=== PATIENT | male | born 1925 | race Caucasian/White ===

== ENCOUNTER 2016-07-11 13:40 | Inpatient (IN) | payer BC, OTHER ==
[~2016-07-11] VITALS: Ht 165.1 cm; Wt 80.0 kg
[~2016-07-11 13:40] MED LIST: ALL300 PO; ASPCH81X PO; ATEN50TA8 PO; CMD125 PO; FURO-85 PO; LEVO-217 PO; POTA-327 PO; SIMV20TA2 PO; TIMO0.2528 OPB; TRAV0.00 OPB; WARF2.5T8 PO; [UNRECOGNIZED DRUG - CODE] PO
[2016-07-11] MEDS ORDERED: SODIUM CHLORIDE 0.9% 1000ML 1,000 ML IV STA (14:09)
--- NOTE | 2016-07-11 14:19 | EMERGENCY ROOM VISIT NOTE ---
History Report prepared by Tree: Nando Patel Under the Supervision of: Dr. Santo Cuadra D.O. First contact with patient: 13:58 Chief Complaint: FALL Stated Complaint: FALLS/ WEAKNESS History of Present Illness The patient is an 89 year old male who presents to the Emergency Room via EMS with complaints of multiple sudden mechanical falls that occurred earlier today. Per the nursing staff, EMS was called 3 times for 3 falls that the patient had. The patient has lacerations on his right foot from the most recent fall, and he has a skin tear on his left arm from the second fall. The patient had a fever when the ambulance came a third time to pick the patient up. The patient says that he has felt fine over the past few days, with no pain. The patient says he has not been eating or drinking much recently. He denies any headaches, neck pain, abdominal pain, shortness of breath, vomiting, or coughing. The patient has been treated for ulcerations on his left foot for around a year, and he says it is getting better. Per the nursing staff, the patient was taken off Keflex 2 weeks ago. He lives at home and has dementia. , Source of History: patient, nursing staff Onset: Earlier today Position: other (global - mechanical falls) Symptom Intensity: 3 falls Timing: other (sudden) Associated Symptoms: + fevers, No SOB, No abdominal pain, No cough, No headache, No neck pain, No vomiting Note: Associated symptoms: Lacerations on right foot, skin tear on left arm. Has not been eating or drinking much recently. Denies any current pain. Review of Systems See HPI for pertinent positives & negatives. A total of 10 systems reviewed and were otherwise negative. 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 (5) Fall (6) HYPERLIPIDEMIA NEC/NOS (7) HYPERTENSION NOS (8) HYPOTHYROIDISM NOS (9) PERSONAL HX OF TIA,& CEREBRAL INFARCTION W/OUT RES DEFICITS Family History Omitted secondary to age Social History Smoking Status: Never Smoker Alcohol Use: none Drug Use: none Marital Status: Housing Status: lives with family Occupation Status: retired Current/Historical Medications Scheduled Allopurinol (Zyloprim *), 300 MG PO DAILY Aspirin (Aspirin Chewable), 81 MG PO DAILY Atenolol (Tenormin), 50 MG PO DAILY Colestipol Hcl (Colestid), 1 GM PO TID Furosemide (Lasix), 20 MG PO DAILY Latanoprost (Xalatan 0.005% Oph Andra), 1 DROPS OPB HS Levothyroxine Sodium (Synthroid), 1 TAB PO DAILY Omeprazole (Prilosec), 20 MG PO DAILY Potassium Ext Rel (Klor-Con), 10 MEQ PO BID Simvastatin (Zocor), 20 MG PO QPM Timolol Maleate 0.25% Oph (Timoptic 0.25% Oph), 1 DROP OPB HS Warfarin Sod (Jantoven), 2.5 MG PO 4XWK Warfarin Sod (Coumadin), 1.25 MG PO 3XWK Allergies Coded Allergies: Sulfa Drugs (Unverified Allergy, Mild, 07/11/16) Physical Exam Vital Signs Date Time Temp Pulse Resp B/P Pulse Ox O2 Delivery O2 Flow Rate FiO2 07/11/16 18:55 38.6 83 22 110/66 07/11/16 18:43 83 22 110/66 94 Room Air 07/11/16 18:17 77 07/11/16 17:25 85 25 115/65 98 Room Air 07/11/16 15:54 88 13 129/62 100 Room Air 07/11/16 14:15 95 07/11/16 14:13 38.6 94 25 121/69 94 Room Air 07/11/16 14:13 97 Room Air Physical Exam GENERAL: Patient is listless, does not appear to be in pain or uncomfortable. EYES: The conjunctivae are clear. The pupils are round and reactive. EARS, NOSE, MOUTH AND THROAT: The nose is without any evidence of any deformity. Mucous membranes are dry tongue is midline NECK: The neck is nontender and supple. RESPIRATORY: Lung sounds were diminished throughout. No tachypnea or conversational dyspnea noted. CARDIOVASCULAR: Heart sounds were tachycardic and regular, loud systolic murmur noted to auscultation. GASTROINTESTINAL: The abdomen is soft. Bowel sounds are present in all quadrants. Abdomen is nontender MUSCULOSKELETAL/EXTREMITIES: There is no evidence of gross deformity full range of motion is noted in the hips and shoulders SKIN: Pedal edema bilaterally. Multiple skin tears in upper extremities as well as bruising across chest. Ulcerations noted over left toes. NEUROLOGIC: Patient is oriented to person and place but not time or situation. Medical Decision & Procedures ER Provider Diagnostic Interpretation: Radiology results as stated below per my review and radiologist interpretation: CHEST ONE VIEW PORTABLE CLINICAL HISTORY: Sepsis COMPARISON STUDY: January 2010 FINDINGS: The heart is borderline enlarged. There is aortic tortuosity. There is no focal pulmonary consolidation. There are scattered calcified granulomas present. Current study is rotated.[ No pleural effusions are visualized. IMPRESSION: No active disease in the chest. Electronically signed by: Tanner Guzman M.D. 07/11/2016 2:36 PM Dictated Date/Time: 07/11/2016 2:[address] CT DOSE: 1071.16 mGy.cm HISTORY: Trauma. Mental status change. fall TECHNIQUE: Multiaxial CT images of the head were performed without the use of intravenous contrast. Comparison: 02/01/2010 Findings: The paranasal sinuses and mastoid air cells are clear. The calvarium and skull base are intact. The ventricles and sulci are within normal limits. There is no mass, hematoma, midline shift, or acute infarct. 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 Mild chronic small vessel change of aging. Mild age-related atrophy. Impression: Chronic change. No acute process. Electronically signed by: Luis Angel Rivas M.D. 07/11/2016 3:46 PM Dictated Date/Time: 07/11/2016 3:[address] OF THE CERVICAL SPINE WITHOUT CONTRAST CLINICAL HISTORY: Fall. COMPARISON STUDY: No previous studies for comparison. TECHNIQUE: Helical axial images of the cervical spine were obtained without IV contrast. Sagittal and coronal reconstructions were viewed. FINDINGS: Positioning on this exam is suboptimal. Left curvature of the cervical spine is likely positional. No acute fracture is identified within the cervical spine. Craniocervical junction is intact. Mild anterolisthesis of C7 on T1 is likely due to facet arthrosis. There is no prevertebral edema. There is no pneumothorax within visual portions the lung apices. There is a calcified right upper lobe granuloma. Moderate multilevel degenerative disc disease and facet arthrosis is present. IMPRESSION: No acute cervical spine fracture or subluxation. Electronically signed by: Ajit Harper M.D. 07/11/2016 3:48 PM Dictated Date/Time: 07/11/2016 3:43 PM Laboratory Results 07/11/16 15:00 Red Blood Count 4.48, Mean Corpuscular Volume 95.1, Mean Corpuscular Hemoglobin 32.1, Mean Corpuscular Hemoglobin Concent 33.8, Mean Platelet Volume 13.6, Neutrophils (%) (Auto) 81.3, Lymphocytes (%) (Auto) 10.1, Monocytes (%) (Auto) 7.5, Eosinophils (%) (Auto) 0.0, Basophils (%) (Auto) 0.3, Neutrophils # (Auto) 5.29, Lymphocytes # (Auto) 0.66, Monocytes # (Auto) 0.49, Eosinophils # (Auto) 0.00, Basophils # (Auto) 0.02 07/11/16 15:00 Test 07/11/16 14:00 07/11/16 15:00 07/11/16 15:11 07/11/16 19:00 Urine Color YELLOW Urine Appearance CLEAR (CLEAR) Urine pH 6.5 (4.5-7.5) Urine Specific [place] 1.009 (1.000-1.030) Urine Protein NEG (NEG) Urine Glucose (UA) NEG (NEG) Urine Ketones NEG (NEG) Urine Occult Blood TRACE (NEG) Urine Nitrite NEG (NEG) Urine Bilirubin NEG (NEG) Urine Urobilinogen NEG (NEG) Urine Leukocyte Esterase NEG (NEG) Urine WBC (Auto) 0 /hpf (0-5) Urine RBC (Auto) 0-4 /hpf (0-4) Urine Hyaline Casts (Auto) 1-5 /lpf (0-5) Urine Epithelial Cells (Auto) 0-5 /lpf (0-5) Urine Bacteria (Auto) NEG (NEG) White Blood Count 6.51 K/uL (4.8-10.8) Red Blood Count 4.48 M/uL (4.7-6.1) Hemoglobin 14.4 g/dL (14.0-18.0) Hematocrit 42.6 % (42-52) Mean Corpuscular Volume 95.1 fL (80-100) Mean Corpuscular Hemoglobin 32.1 pg (25-34) Mean Corpuscular Hemoglobin Concent 33.8 g/dl (32-36) Platelet Count 122 K/uL (130-400) Mean Platelet Volume 13.6 fL (7.4-10.4) Neutrophils (%) (Auto) 81.3 % Lymphocytes (%) (Auto) 10.1 % Monocytes (%) (Auto) 7.5 % Eosinophils (%) (Auto) 0.0 % Basophils (%) (Auto) 0.3 % Neutrophils # (Auto) 5.29 K/uL (1.4-6.5) Lymphocytes # (Auto) 0.66 K/uL (1.2-3.4) Monocytes # (Auto) 0.49 K/uL (0.11-0.59) Eosinophils # (Auto) 0.00 K/uL (0-0.5) Basophils # (Auto) 0.02 K/uL (0-0.2) RDW Standard Deviation 54.8 fL (36.4-46.3) RDW Coefficient of Variation 15.7 % (11.5-14.5) Immature Granulocyte % (Auto) 0.8 % Immature Granulocyte # (Auto) 0.05 K/uL (0.00-0.02) Red Blood Cell Morphology Unremarkable Erythrocyte Sedimentation Rate 36 mm/hr (0-14) Prothrombin Time 16.7 SECONDS (9.0-12.0) Prothromb Time International Ratio 1.5 (0.9-1.1) Activated Partial Thromboplast Time 40.0 SECONDS (21.0-31.0) Partial Thromboplastin Ratio 1.5 Venous Blood pH 7.43 (7.36-7.41) Venous Blood Partial Pressure CO2 46 mmHg (38.0-50.0) Venous Blood Partial Pressure O2 22 mmHg Venous Blood HCO3 30 mmol/L Venous Blood Oxygen Saturation < 60.0 % Venous Blood Base Excess 4.6 mmol/L Anion Gap 7.0 mmol/L (3-11) Est Creatinine Clear Calc Drug Dose 40.7 ml/min Estimated GFR () 61.8 Estimated GFR (Non- 53.3 BUN/Creatinine Ratio 16.1 (10-20) Calcium Level 9.1 mg/dl (8.5-10.1) Phosphorus Level 2.6 mg/dl (2.5-4.9) Magnesium Level 2.0 mg/dl (1.8-2.4) Total Bilirubin 1.3 mg/dl (0.2-1) Aspartate Amino Transf (AST/SGOT) 39 U/L (15-37) Alanine Aminotransferase (ALT/SGPT) 23 U/L (12-78) Alkaline Phosphatase 82 U/L (45-117) Total Creatine Kinase 198 U/L (39-308) Creatine Kinase MB 0.7 ng/ml (0.5-3.6) Creatine Kinase MB Ratio 0.4 (0-3.0) Troponin I 0.040 ng/ml (0-0.045) C-Reactive Protein 9.31 mg/dl (0-0.29) Pro-B-Type Natriuretic Peptide 9403 pg/ml (0-1800) Total Protein 7.2 gm/dl (6.4-8.2) Albumin 3.5 gm/dl (3.4-5.0) Globulin 3.7 gm/dl (2.5-4.0) Albumin/Globulin Ratio 0.9 (0.9-2) Lipase 79 U/L (73-393) Chemistry Specimen Hemolysis Bedside Lactic Acid Venous 2.36 mmol/L (0.90-1.70) Laboratory results per my review. Medications Administered Medications (Trade) Dose Ordered Sig/Ismael Route Start Time Stop Time Status Last Admin Dose Admin Sodium Chloride (Nss 1000ml) 1,000 ml @ 999 mls/hr Q1H1M STAT IV 07/11/16 14:09 07/11/16 15:09 DC 07/11/16 15:10 999 MLS/HR Ceftriaxone Sodium (Rocephin Inj) 1 gm NOW STAT IV 07/11/16 16:51 07/11/16 16:52 DC 07/11/16 16:51 1 GM ECG Indication: weakness Rate (beats per minute): 90 Rhythm: atrial fibrillation Findings: other (no PVC's, no acute ST segment abnormalities) Change: no significant change (from Feb 01 2010) ED Course 1404: The patient was evaluated in room A2. A complete history and physical examination were performed. 1409: Ordered NSS 1000 ml @ 999 mls/hr IV. 165: Ordered Rocephin Inj 1 gm IV. 165: I reevaluated the patient and he is resting comfortably. The patient verbally expressed understanding and agreement with the treatment plan. The patient will be evaluated for further treatment. 1659: I discussed the patient with Cristal Murillo. She will evaluate the patient for further treatment. Medical Decision Prior records/ancillary studies reviewed and summarized above. Nursing notes reviewed. Additional history obtained from nursing staff. Differential diagnosis: Etiologies such as metabolic, infection, hypo/hyperglycemia, electrolyte abnormalities, cardiac sources, intracerebral event, toxicologic, neurologic, as well as others were entertained. The patient is an 89-year-old male who presented to the emergency department by ambulance. The ambulance was called to the patient's house 3 times today. Each time it was for a fall. On the third call even though the patient did not wish to come to the hospital he was brought to the hospital because prehospital personnel felt he was unsafe. The patient was found have a fever. I do feel the patient's overall condition is likely consistent with early septic picture. He appears to have no signs of infection in his lungs on chest x-ray or on urinalysis but I do feel the patient has lower extremity findings which could be consistent with cellulitis. He was started on IV antibiotics IV fluids in the emergency department. He was reevaluated multiple times. I discussed the patient's laboratory and radiographic studies with him and his family member. I also discussed his case with the on-call [facility] hospitalist group. They have agreed to evaluate the patient in the emergency department for further management and disposition. Consults Time Called: 1654 Consulting Physician: Cristal Murillo Returned Call: [phone] I discussed the patient with Cristal Murillo. She will evaluate the patient for further treatment. Impression Primary Impression: Sepsis Additional Impressions: Cellulitis Weakness Scribe Attestation The scribe's documentation has been prepared under my direction and personally reviewed by me in its entirety. I confirm that the note above accurately reflects all work, treatment, procedures, and medical decision making performed by me. Departure Information Dispostion Being Evaluated By Hospitalist Referrals Terry Gambino M.D. (PCP) Patient Instructions [facility] Problem Qualifiers Primary Impression: Sepsis Sepsis type: sepsis due to unspecified organism Qualified Codes: A41.9 - Sepsis, unspecified organism Additional Impressions: Cellulitis Site of cellulitis: extremity Site of cellulitis of extremity: lower extremity Laterality: unspecified laterality Qualified Codes: L03.119 - Cellulitis of unspecified part of limb
--- NOTE | 2016-07-11 14:37 | DIAGNOSTIC IMAGING REPORT ---
CHEST ONE VIEW PORTABLE CLINICAL HISTORY: Sepsis COMPARISON STUDY: January 2010 FINDINGS: The heart is borderline enlarged. There is aortic tortuosity. There is no focal pulmonary consolidation. There are scattered calcified granulomas present. Current study is rotated.[ No pleural effusions are visualized. IMPRESSION: No active disease in the chest. Electronically signed by: Tanner Guzman M.D. 07/11/2016 2:36 PM Dictated Date/Time: 07/11/2016 2:35 PM
[2016-07-11 15:03] LABS: URINE APPEARANCE CLEAR (CLEAR); URINE BILIRUBIN NEG (NEG); URINE COLOR YELLOW; URINE EPITHELIAL CELL AUTO 0-5 /lpf (0-5); URINE NITRITE NEG (NEG); URINE PH 6.5 (4.5-7.5); URINE SPECIFIC GRAVITY 1.009 (1.000-1.030); UROBILINOGEN NEG (NEG); ZZURINE CULT IF INDIC CATH NO
[2016-07-11 15:09] LABS: MANUAL MICROSCOPIC REQUIRED? NO; REVIEW REQ? NO
[2016-07-11 15:18] LABS: VEN BLOOD GAS BASE EXCESS 4.6 mmol/L; VENOUS BLOOD GAS PCO2 46 mmHg (38.0-50.0); VENOUS BLOOD GAS PO2 22 mmHg
[2016-07-11 15:19] LABS: VEN BLD GAS O2 SATURATION < 60.0 %
[2016-07-11 15:35] LABS: INR 1.5 (0.9-1.1); PARTIAL THROMBOPLASTIN RATIO 1.5; PROTHROMBIN TIME (PATIENT) 16.7 SECONDS (9.0-12.0)
--- NOTE | 2016-07-11 15:47 | DIAGNOSTIC IMAGING REPORT ---
HEAD CT NONCONTRAST CT DOSE: 1071.16 mGy.cm HISTORY: Trauma. Mental status change. fall TECHNIQUE: Multiaxial CT images of the head were performed without the use of intravenous contrast. Comparison: 02/01/2010 Findings: The paranasal sinuses and mastoid air cells are clear. The calvarium and skull base are intact. The ventricles and sulci are within normal limits. There is no mass, hematoma, midline shift, or acute infarct. 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 Mild chronic small vessel change of aging. Mild age-related atrophy. Impression: Chronic change. No acute process. Electronically signed by: Luis Angel Rivas M.D. 07/11/2016 3:46 PM Dictated Date/Time: 07/11/2016 3:43 PM
--- NOTE | 2016-07-11 15:48 | DIAGNOSTIC IMAGING REPORT ---
CT OF THE CERVICAL SPINE WITHOUT CONTRAST CLINICAL HISTORY: Fall. COMPARISON STUDY: No previous studies for comparison. TECHNIQUE: Helical axial images of the cervical spine were obtained without IV contrast. Sagittal and coronal reconstructions were viewed. FINDINGS: Positioning on this exam is suboptimal. Left curvature of the cervical spine is likely positional. No acute fracture is identified within the cervical spine. Craniocervical junction is intact. Mild anterolisthesis of C7 on T1 is likely due to facet arthrosis. There is no prevertebral edema. There is no pneumothorax within visual portions the lung apices. There is a calcified right upper lobe granuloma. Moderate multilevel degenerative disc disease and facet arthrosis is present. IMPRESSION: No acute cervical spine fracture or subluxation. Electronically signed by: Ajit Harper M.D. 07/11/2016 3:48 PM Dictated Date/Time: 07/11/2016 3:43 PM
[2016-07-11 15:51] LABS: ALB/GLOB RATIO 0.9 (0.9-2); BUN/CREATININE RATIO 16.1 (10-20); C-REACTIVE PROTEIN 9.31 mg/dl (0-0.29); CALCIUM 9.1 mg/dl (8.5-10.1); CKMB/CK RATIO 0.4 (0-3.0); CREATININE 1.2 mg/dl (0.60-1.40); PHOSPHORUS 2.6 mg/dl (2.5-4.9); POTASSIUM 3.6 mmol/L (3.5-5.1)
[2016-07-11 16:23] LABS: MEAN CORPUSCULAR HGB CONC 33.8 g/dl (32-36); MEAN PLATELET VOLUME 13.6 fL (7.4-10.4); PLATELET COUNT 122 K/uL (130-400)
[2016-07-11 16:27] LABS: BASO % 0.3 %; BASO ABS # 0.02 K/uL (0-0.2); COMPLETE YES; HEMATOCRIT 42.6 % (42-52); IG% 0.8 %; LYMPH % 10.1 %; LYMPH ABS # 0.66 K/uL (1.2-3.4); MEAN CELL VOLUME 95.1 fL (80-100); MEAN CORPUSCULAR HEMOGLOBIN 32.1 pg (25-34); MONO % 7.5 %; NEUT % 81.3 %; RED BLOOD COUNT 4.48 M/uL (4.7-6.1); WHITE BLOOD COUNT 6.51 K/uL (4.8-10.8)
[2016-07-11] MEDS ORDERED: CEFTRIAXONE SOD INJ 1 GM ADDVIAL IV STA (16:51)
[2016-07-11] MEDS ORDERED: ONDANSETRON INJ 2 MG/ML 2 ML VIAL IV PRN (18:00)
[2016-07-11] MEDS ORDERED: ACETAMINOPHEN 325 MG TAB PO PRN (18:00)
[2016-07-11] MEDS ORDERED: POTA20TA16 PO (18:02)
[2016-07-11] MEDS ORDERED: OMEP20CA9 PO (18:02)
[2016-07-11] MEDS ORDERED: COLE1TAB PO (18:02)
[2016-07-11] MEDS ORDERED: LEVO88TA PO (18:02)
[2016-07-11] MEDS ORDERED: LATA0.5S OPB (18:02)
[2016-07-11] MEDS ORDERED: VANCOMYCIN INJ 1,700 MG in SODIUM CHLORIDE 0.9% 500ML 500 ML IV ONE (18:15)
--- NOTE | 2016-07-11 18:28 | Progress Note ---
Progress Note Date of Service July 11, 2016. Progress Note Please see admit h&p by Cristal Gonzalez for full details. Patient presented after 3 falls today. Two of the falls sounded mechanical in nature: patient slipped off bed and off toilet. Patient denies any proceeding symptoms. Vitals notable for fever. PE: General- awake; alert; NAD Eyes- EOMI; no scleral icterus ENT- +dentures Neck- no stridor; trachea midline Lungs- CTA bilaterally; no wheezes/crackles Heart- irregularly irregular; +loud systolic murmur Abdomen- soft; NTND; nBS Back- no gross abnormalities Extremities- chronic deformity of medial aspect of left foot with superficial ulcer; edematous appearing left foot which is chronic and unchanged per patient Neuro- no focal deficits Skin- warmth of LLE; erythema of left foot which is chronic and unchanged per patient Labs, imaging and EKG reviewed. Mechanical falls: CT head and CT c-spine negative. PT/OT evaluations. No prodromal symptoms or loss of consciousness per patient (he does have a h/o aortic stenosis). Left foot ulcer: Fever. Normal WBC count. Elevated ESR and CRP. Wound culture pending. Blood cultures pending. Vancomycin for now. Wound care consult. Of note , patient did have an abnormal MRI about a month ago that is not addressed in any of the wound care notes; this will need to be addressed with wound care. Agree with remainder of plan as outlined by Cristal Gonzalez.
[2016-07-11] MEDS ORDERED: VANCOMYCIN CONSULT ACTIVE PRN (18:35)
[2016-07-11 18:55] VITALS: BP_SYST 109; BP_SYST 110; BP_DIAS 64; BP_DIAS 66; PULSE 83; PULSE 93; TEMP 36.8; TEMP 38.6; O2SAT 94; Ht 165.1 cm; Wt 80.0 kg
--- NOTE | 2016-07-11 19:00 | History and Physical ---
History & Physical Date & Time of Service: July 11, 2016 at 18:24 Chief Complaint: Falls/ Weakness Primary Care Physician: Twin Stevens D.OLoreto History of Present Illness Source: patient, family, clinic records, hospital records Patient seen and examined. 89 year old male with PMHx of Afib on coumadin, HTN, HLD severe and other problems listed below presents to the ED following multiple falls prior to arrival. Patient reports that he fell 3 times today. At the time of my examination he states he did not remember what the situation surrounding the falls were. When Dr. Munoz spoke with the patient he stated that he slipped off his bed once and the toilet once. He is unsure what happened for the third fall. He was unable to get up from any of the falls and EMS was called. He refused to come to the ED until after the third fall at which time he was febrile. He denies any lightheadedness, or dizziness prior to the falls and denies head trauma and LOC. He reports he felt "weak and wobbly" today otherwise he feels at baseline. He denies chills, URI symptoms, chest pain , SOB, nausea, vomiting, diarrhea, dysuria, calf pain and edema. He is being seen at wound care for a left foot pressure ulcer. In the ED patient is febrile. there is no leukocytosis, POC lactate is 2.3, ESR and CRP are elevated. CXR and UA are without signs of infection. There appears to be cellulitis surrounding patient's left foot. He received IVFs and rocephin. He will be admitted for further workup and treatment. 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 Family History Omitted secondary to age Social History Smoking Status: Never Smoker Alcohol Use: vodka daily Drug Use: none Marital Status: Housing status: lives with family Occupational Status: retired Immunizations History of Influenza Vaccine: Unknown History of Tetanus Vaccine?: Unknown History of Pneumococcal: Unknown History of Hepatitis B Vaccine: No Multi-Drug Resistant Organisms History of MDRO: Yes Type of MDRO: VRE Allergies Coded Allergies: Sulfa Drugs (Unverified Allergy, Mild, 07/11/16) Home Medications Scheduled Allopurinol (Zyloprim *), 300 MG PO DAILY Aspirin (Aspirin Chewable), 81 MG PO DAILY Atenolol (Tenormin), 50 MG PO DAILY Colestipol Hcl (Colestid), 1 GM PO TID Furosemide (Lasix), 20 MG PO DAILY Latanoprost (Xalatan 0.005% Oph Andra), 1 DROPS OPB HS Levothyroxine Sodium (Synthroid), 1 TAB PO DAILY Omeprazole (Prilosec), 20 MG PO DAILY Potassium Ext Rel (Klor-Con), 10 MEQ PO BID Simvastatin (Zocor), 20 MG PO QPM Timolol Maleate 0.25% Oph (Timoptic 0.25% Oph), 1 DROP OPB HS Warfarin Sod (Jantoven), 2.5 MG PO 4XWK Warfarin Sod (Coumadin), 1.25 MG PO 3XWK Review of Systems Constitutional: + fever, No chills Eyes: No worsening of vision ENT: No nasal symptoms Respiratory: No cough, No shortness of breath Cardiovascular: No chest pain, No edema, No palpitations Abdomen: No constipation, No diarrhea, No nausea, No pain, No vomiting Musculoskeletal: No calf pain, No swelling Genitourinary - Male: No dysuria Neurologic: No numbness/tingling, No vertigo Psychiatric: No depression symptoms Endocrine: No fatigue Hematologic / Lymphatic: No abnormal bleeding/bruising, No clotting problems Integumentary: No itch, No rash Allergic / Immunologic: No environmental allergies Physical Exam Vital Signs Date Time Temp Pulse Resp B/P Pulse Ox O2 Delivery O2 Flow Rate FiO2 07/11/16 18:17 77 07/11/16 17:25 85 25 115/65 98 Room Air 07/11/16 15:54 88 13 129/62 100 Room Air 07/11/16 14:15 95 07/11/16 14:13 38.6 94 25 121/69 94 Room Air 07/11/16 14:13 97 Room Air General Appearance: + pertinent finding (WD/WN 89 year old male lying in bed in NAD with family at bedside ) Head: normocephalic, atraumatic Eyes: PERRL, EOMI, sclerae normal ENT: hearing grossly normal, pharynx normal Neck: supple, no JVD Respiratory/Chest: chest non-tender, lungs clear, normal breath sounds, no respiratory distress, no accessory muscle use, + pertinent finding (large ecchymosis to cental chest ) Cardiovascular: no edema, no gallop, no JVD, normal peripheral pulses, + systolic murmur, + irregularly irregular (rate 90s) Abdomen/GI: normal bowel sounds, non tender, soft Back: normal inspection, no muscle spasm Extremities/Musculoskelatal: no calf tenderness, normal capillary refill, + pertinent finding (left foot with pressure ulcer to medial plantar aspect about nayana sized. surrounding erythema, mild edema, extremity hot. ) Neurologic/Psych: alert, oriented x 3, + pertinent finding (occasionally forgetful, otherwise no motor or sensory deficits ) Skin: + pertinent finding (scattered ecchymosis ) Lymphatic: no adenopathy Diagnostics Laboratory Results Results Past 24 Hours Test 07/11/16 14:00 07/11/16 15:00 07/11/16 15:11 Range/Units Urine Color YELLOW Urine Appearance CLEAR CLEAR Urine pH 6.5 4.5-7.5 Urine Specific [place] 1.009 1.000-1.030 Urine Protein NEG NEG Urine Glucose (UA) NEG NEG Urine Ketones NEG NEG Urine Occult Blood TRACE NEG Urine Nitrite NEG NEG Urine Bilirubin NEG NEG Urine Urobilinogen NEG NEG Urine Leukocyte Esterase NEG NEG Urine WBC (Auto) 0 0-5 /hpf Urine RBC (Auto) 0-4 0-4 /hpf Urine Hyaline Casts (Auto) 1-5 0-5 /lpf Urine Epithelial Cells (Auto) 0-5 0-5 /lpf Urine Bacteria (Auto) NEG NEG White Blood Count 6.51 4.8-10.8 K/uL Red Blood Count 4.48 4.7-6.1 M/uL Hemoglobin 14.4 14.0-18.0 g/dL Hematocrit 42.6 42-52 % Mean Corpuscular Volume 95.1 80-100 fL Mean Corpuscular Hemoglobin 32.1 25-34 pg Mean Corpuscular Hemoglobin Concent 33.8 32-36 g/dl Platelet Count 122 130-400 K/uL Mean Platelet Volume 13.6 7.4-10.4 fL Neutrophils (%) (Auto) 81.3 % Lymphocytes (%) (Auto) 10.1 % Monocytes (%) (Auto) 7.5 % Eosinophils (%) (Auto) 0.0 % Basophils (%) (Auto) 0.3 % Neutrophils # (Auto) 5.29 1.4-6.5 K/uL Lymphocytes # (Auto) 0.66 1.2-3.4 K/uL Monocytes # (Auto) 0.49 0.11-0.59 K/uL Eosinophils # (Auto) 0.00 0-0.5 K/uL Basophils # (Auto) 0.02 0-0.2 K/uL RDW Standard Deviation 54.8 36.4-46.3 fL RDW Coefficient of Variation 15.7 11.5-14.5 % Immature Granulocyte % (Auto) 0.8 % Immature Granulocyte # (Auto) 0.05 0.00-0.02 K/uL Red Blood Cell Morphology Unremarkable Erythrocyte Sedimentation Rate 36 0-14 mm/hr Prothrombin Time 16.7 9.0-12.0 SECONDS Prothromb Time International Ratio 1.5 0.9-1.1 Activated Partial Thromboplast Time 40.0 21.0-31.0 SECONDS Partial Thromboplastin Ratio 1.5 Venous Blood pH 7.43 7.36-7.41 Venous Blood Partial Pressure CO2 46 38.0-50.0 mmHg Venous Blood Partial Pressure O2 22 mmHg Venous Blood HCO3 30 mmol/L Venous Blood Oxygen Saturation < 60.0 % Venous Blood Base Excess 4.6 mmol/L Sodium Level 135 136-145 mmol/L Potassium Level 3.6 3.5-5.1 mmol/L Chloride Level 98 98-107 mmol/L Carbon Dioxide Level 30 21-32 mmol/L Anion Gap 7.0 3-11 mmol/L Blood Urea Nitrogen 19 7-18 mg/dl Creatinine 1.20 0.60-1.40 mg/dl Est Creatinine Clear Calc Drug Dose 40.7 ml/min Estimated GFR () 61.8 Estimated GFR (Non- 53.3 BUN/Creatinine Ratio 16.1 10-20 Random Glucose 119 70-99 mg/dl Calcium Level 9.1 8.5-10.1 mg/dl Phosphorus Level 2.6 2.5-4.9 mg/dl Magnesium Level 2.0 1.8-2.4 mg/dl Total Bilirubin 1.3 0.2-1 mg/dl Aspartate Amino Transf (AST/SGOT) 39 15-37 U/L Alanine Aminotransferase (ALT/SGPT) 23 12-78 U/L Alkaline Phosphatase 82 45-117 U/L Total Creatine Kinase 198 39-308 U/L Creatine Kinase MB 0.7 0.5-3.6 ng/ml Creatine Kinase MB Ratio 0.4 0-3.0 Troponin I 0.040 0-0.045 ng/ml C-Reactive Protein 9.31 0-0.29 mg/dl Pro-B-Type Natriuretic Peptide 9403 0-1800 pg/ml Total Protein 7.2 6.4-8.2 gm/dl Albumin 3.5 3.4-5.0 gm/dl Globulin 3.7 2.5-4.0 gm/dl Albumin/Globulin Ratio 0.9 0.9-2 Lipase 79 73-393 U/L Chemistry Specimen Hemolysis Bedside Lactic Acid Venous 2.36 0.90-1.70 mmol/L Microbiology Results 07/11/16 Blood Culture, Received Pending 07/11/16 Blood Culture, Received Pending Diagnostic Radiology C-SPINE CT Per radiologist read: IMPRESSION: No acute cervical spine fracture or subluxation. CT HEAD Per radiologist read: Impression: Chronic change. No acute process. CXR Per radiologist read: IMPRESSION: No active disease in the chest. EKG Afib 90 BPM, QTc 442 Impression Assessment and Plan 89 year old male presents to the ED following multiple mechanical falls prior to arrival. Was found to be febrile. Likely source of infection is cellulitis LEFT FOOT CELLULITIS WITH PRESSURE ULCER -Admit to med/surg -febrile, no leukocytosis, mild elevated of POC lactate -Wound cultures, blood culture pending -Empirically treat with vancomycin -Wound care physician and nurse consult - follows with Dr. Daniels -repeat formal lactate -CBC, PRP in AM MECHANICAL FALLS -CT head negative -PT/OT eval -high school social studies teacher consult for discharge planning -Will need to discuss risk versus benefits of Coumadin continuation with PCP and cardiology AFIB -rate controlled with BB -INR 1.5 -continue Coumadin -follow INR -follows with Dr. Genao HTN -stable -continue BB, Lasix H/O SEVERE AORTIC STENOSIS -received IVFs in ED -monitor volume status closely -continue Lasix HYPOTHYROIDISM -continue Synthroid H/O CVA -continue statin, aspirin DVT PROPHYLAXIS: SQ heparin until INR is therapeutic DISPO:In my clinical judgment this beneficiary meets acute admission criteria, established by [facility], that includes being hospitalized through two midnights. Patient seen in collaboration with Dr. Munoz VTE Prophylaxis VTE Risk Assessment Done? Y/N: Yes Risk Level: Moderate
[2016-07-11 19:45] VITALS: BP 109/64; PULSE 93; TEMP 36.8; O2SAT 95
[2016-07-11] MEDS ORDERED: WARFARIN SOD 5 MG TAB PO ONE (20:15)
[2016-07-11] MEDS: POTASSIUM CHLORIDE 10 MEQ TABCR PO SCH (20:38)
[2016-07-11] MEDS: SIMVASTATIN 20 MG TAB PO SCH (20:39)
[2016-07-11] MEDS ORDERED: SODIUM CHLORIDE 0.9% 500ML 500 ML IV ONE (21:00)
[2016-07-11] MEDS: COLESTIPOL HCL 1 GM TAB PO SCH (21:52)
[2016-07-11] MEDS: TIMOLOL MALEATE 0.25% OP SOLN 5 ML BTL OPB SCH (21:54)
[2016-07-11] MEDS: LATANOPROST 0.005% OP SOLN 2.5 ML BTL OPB SCH (21:54)
[2016-07-11] MEDS: HEPARIN SOD 5000 UNIT/0.5 ML CARP SQ SCH (21:54)
--- NOTE | 2016-07-11 22:34 | Pharmacy Progress Note ---
Pharmacy Antibiotic Consult Date of Service: July 11, 2016. Pharmacy Dosing Scope Pharmacy is consulted to initiate vancomycin IV dosing therapy, order appropriate labs and adjust drug dose/frequency. Subjective The patient is a 89 year old male admitted on July 11, 2016 for L foot cellulitis. Objective Height (Feet): 5 Height (Inches): 5.00 Weight (Kilograms): 80.000 Lab Results (24hrs): Laboratory Tests Test 07/11/16 15:00 BUN/Creatinine Ratio 16.1 Blood Urea Nitrogen 19 mg/dl Creatinine 1.20 mg/dl White Blood Count 6.51 K/uL Red Blood Count 4.48 M/uL Hemoglobin 14.4 g/dL Hematocrit 42.6 % Mean Corpuscular Volume 95.1 fL Mean Corpuscular Hemoglobin 32.1 pg Mean Corpuscular Hemoglobin Concent 33.8 g/dl Platelet Count 122 K/uL Mean Platelet Volume 13.6 fL Neutrophils (%) (Auto) 81.3 % Lymphocytes (%) (Auto) 10.1 % Monocytes (%) (Auto) 7.5 % Eosinophils (%) (Auto) 0.0 % Basophils (%) (Auto) 0.3 % Neutrophils # (Auto) 5.29 K/uL Lymphocytes # (Auto) 0.66 K/uL Monocytes # (Auto) 0.49 K/uL Eosinophils # (Auto) 0.00 K/uL Basophils # (Auto) 0.02 K/uL Assessment & Plan ASSESSMENT: * Est PK parameters: Vd 0.7 L/kg, Rinku 0.038 hr-1, t1/2 18.2 hrs PLAN: Loading dose: Vancomycin 1700 mg (21 mg/kg) IV X 1 dose has already been given , then: Vancomycin 1500 mg (18.8 mg/kg) IV every 24 hours. Goal trough level estimate: ~15 Trough level has been ordered for: prior to the 3rd dose (please note that this is NOT a steady state) Pharmacy will continue to follow and will adjust dose/frequency as necessary. Thank you
[2016-07-11 23:59] VITALS: BP 112/68; PULSE 84; TEMP 37.4; O2SAT 96
[2016-07-12] MEDS: LEVOTHYROXINE 88 MCG TAB PO SCH (06:22)
[2016-07-12] MEDS: HEPARIN SOD 5000 UNIT/0.5 ML CARP SQ SCH (06:26)
[2016-07-12 07:07] LABS: MEAN CORPUSCULAR HGB CONC 33.1 g/dl (32-36)
[2016-07-12 07:11] LABS: INR 1.6 (0.9-1.1)
[2016-07-12 07:26] VITALS: BP 104/65; PULSE 95; TEMP 37.1; O2SAT 94
[2016-07-12 07:27] LABS: HEMATOCRIT 35.6 % (42-52); MEAN CELL VOLUME 95.2 fL (80-100); MEAN CORPUSCULAR HEMOGLOBIN 31.6 pg (25-34); MEAN PLATELET VOLUME 12.8 fL (7.4-10.4); PLATELET COUNT 92 K/uL (130-400); PLT ESTIMATE DECREASED; RED BLOOD COUNT 3.74 M/uL (4.7-6.1); WHITE BLOOD COUNT 5.24 K/uL (4.8-10.8)
[2016-07-12 07:50] LABS: BUN/CREATININE RATIO 22.8 (10-20); CALCIUM 7.9 mg/dl (8.5-10.1); CREATININE 0.84 mg/dl (0.60-1.40); MAGNESIUM 1.8 mg/dl (1.8-2.4); POTASSIUM 3.2 mmol/L (3.5-5.1)
[2016-07-12] MEDS: PANTOprazole SOD 40 MG TAB PO SCH (08:52)
[2016-07-12] MEDS: POTASSIUM CHLORIDE 10 MEQ TABCR PO SCH ×2 (08:53→21:03)
[2016-07-12] MEDS: FUROSEMIDE 20 MG TAB PO SCH (08:53)
[2016-07-12] MEDS: ALLOPURINOL 300 MG TAB PO SCH (08:53)
[2016-07-12] MEDS ORDERED: ASPIRIN 81 MG ECTAB PO SCH (09:00)
[2016-07-12] MEDS: COLESTIPOL HCL 1 GM TAB PO SCH ×3 (10:43→22:32)
[2016-07-12] MEDS ORDERED: POTASSIUM CHLORIDE 10 MEQ TABCR PO ONE (14:00)
--- NOTE | 2016-07-12 14:07 | Clinical Documentation Query ---
CLINICAL DOCUMENTATION QUERY Dr. LATHAM, In your clinical opinion is this patient being managed for: ( x) Pressure ulcer of L foot, stage 2 ( ) Other explanation of clinical findings (Please Explain) ( ) Unable to determine (Please Define) ( ) Need to Discuss ( ) Not Agree The medical record reflects the following clinical findings, treatment, and risk factors. Clinical Indicators:89 yo male presenting with LLE cellulitis and L foot pressure ulcer. Review of Outpatient wound clinic notes indicate pt has a stage II pressure ulcer. WOCN did not stage pressure ulcer in her documentation. Treatment: WOCN consult, IV vancomycin, wound care with pacheco and optifoam qod and prn, [employer] [place] walker Risk Factors: charcot foot deformity Please clarify and document your clinical opinion in the progress notes and discharge summary. Terms such as "probable", "suspected", "likely", "questionable", "possible", or "still to be ruled out" are acceptable. IF IN AGREEMENT, YOU MUST DOCUMENT ABOVE DIAGNOSTIC STATEMENT IN DAILY PROGRESS NOTES AND DISCHARGE SUMMARY. This document is not part of the patient's record. Thank You, Jasmin Temple, HEENA [phone]
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
[2016-07-12] MEDS ORDERED: CALCIUM CARBONATE 500 MG CHEWABLE PO PRN (14:45)
[2016-07-12] MEDS ORDERED: SODIUM CHLORIDE 0.9% 1000ML 1,000 ML IV SCH (15:15)
[2016-07-12 15:28] VITALS: BP 117/80; PULSE 91; TEMP 36.7; O2SAT 98
--- NOTE | 2016-07-12 15:35 | Discharge Instructions ---
Discharge Instructions Date of Service July 12, 2016. Admission Reason for Admission: Cellulitis, Fall, Weakness Discharge Discharge Diagnosis / Problem: left foot stage 2 pressure ulcer, CELLULITIS / MSSA , chronic afib Discharge Goals Goal(s): Decrease discomfort, Increase independence, Improve disease control, Diagnostic testing Activity Recommendations Activity Limitations: resume your previous activity . Instructions / Follow-Up Instructions / Follow-Up HOSPITAL FOLLOW UP ON 07/18/2016 @ 1:[address] Twin Stevens, [facility] DO NOT TAKE ASPIRIN , TILL YOUR BLOOD WORK -PLATELET COUNT IMPROVES MORE THAN 100, 000 NEED REFERRAL TO HEMATOLOGY -DR JAK JACKSON /DR MANDA NUNES FOR THROMBOCYTOPENIA FOLLOW UP WITH WOUND CARE CLINIC on July 28Monday @ 11 AM Current Hospital Diet Patient's current hospital diet: Regular Diet Discharge Diet Recommended Diet: Regular Diet Pending Studies Studies pending at discharge: yes List of pending studies: LAB WORK : COMPLETE BLOOD COUNT ON 07/18/16 Medical Emergencies . Who to Call and When: Medical Emergencies: If at any time you feel your situation is an emergency, please call 911 immediately. . Non-Emergent Contact Non-Emergency issues call your: Primary Care Provider . . "Provider Documentation" section prepared by Bridgette Marin. . VTE Core Measure Inpt VTE Proph given/why not?: Warfarin (Coumadin)
[2016-07-12] MEDS ORDERED: WARFARIN SOD 2.5 MG TAB PO SCH ×2 (16:00)
[2016-07-12] MEDS ORDERED: VANCOMYCIN INJ 1,500 MG in SODIUM CHLORIDE 0.9% 500ML 500 ML IV SCH (20:00)
[2016-07-12] MEDS: LATANOPROST 0.005% OP SOLN 2.5 ML BTL OPB SCH (21:01)
[2016-07-12] MEDS: TIMOLOL MALEATE 0.25% OP SOLN 5 ML BTL OPB SCH (21:01)
[2016-07-12] MEDS: SIMVASTATIN 20 MG TAB PO SCH (21:03)
[2016-07-12 23:52] VITALS: BP 120/82; PULSE 83; TEMP 36.8; O2SAT 95
[2016-07-13] MEDS: LEVOTHYROXINE 88 MCG TAB PO SCH (05:54)
[2016-07-13 07:16] VITALS: BP 133/85; PULSE 92; TEMP 36.4; O2SAT 98
[2016-07-13 07:50] LABS: INR 2.1 (0.9-1.1); PROTHROMBIN TIME (PATIENT) 23.5 SECONDS (9.0-12.0)
[2016-07-13 08:12] LABS: HEMATOCRIT 34.7 % (42-52); MEAN CELL VOLUME 94.6 fL (80-100); MEAN CORPUSCULAR HEMOGLOBIN 31.6 pg (25-34); MEAN CORPUSCULAR HGB CONC 33.4 g/dl (32-36); MEAN PLATELET VOLUME 12.8 fL (7.4-10.4); PLATELET COUNT 82 K/uL (130-400); RED BLOOD COUNT 3.67 M/uL (4.7-6.1); WHITE BLOOD COUNT 4.64 K/uL (4.8-10.8)
[2016-07-13] MEDS: PANTOprazole SOD 40 MG TAB PO SCH (08:48)
[2016-07-13] MEDS: COLESTIPOL HCL 1 GM TAB PO SCH (08:48)
[2016-07-13] MEDS: FUROSEMIDE 20 MG TAB PO SCH (08:48)
[2016-07-13] MEDS: POTASSIUM CHLORIDE 10 MEQ TABCR PO SCH (08:49)
[2016-07-13] MEDS: ALLOPURINOL 300 MG TAB PO SCH (08:49)
[2016-07-13 09:02] LABS: BUN/CREATININE RATIO 27.8 (10-20); CALCIUM 8.2 mg/dl (8.5-10.1); CREATININE 0.77 mg/dl (0.60-1.40); POTASSIUM 3.5 mmol/L (3.5-5.1)
[2016-07-13] MEDS ORDERED: CEPH500C2 PO (10:03)
[2016-07-13] MEDS ORDERED: CEPHALEXIN MONOHYDRATE 500 MG CAP PO ONE (10:15)
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
[2016-07-13 10:51] VITALS: BP 133/85; PULSE 92; TEMP 36.4; O2SAT 98
--- NOTE | 2016-07-13 13:06 | ECHOCARDIOGRAM REPORT ---
*NOTICE TO RECEIVING [employer] This information is strictly Confidential and protected under [place] law. [place] law prohibits you from making any further disclosure of this information unless further disclosure is expressly permitted by the written consent of the person to whom it pertains or is authorized by law. A general authorization for the release of medical or other information is not sufficient for this purpose. Hospital accepts no responsibility if the information is made available to any other person, INCLUDING THE PATIENT. Interpretation Summary * Name: DENNIS HUNT Study Date: 07/13/2016 10:38 AM BP: 133/85 mmHg * Patient Location: .[id number]\S\1 HR: 92 * : 1925 (M/d/yyyy) Gender: Male Height: 65 in * Age: 89 yrs Ethnicity: [place] Weight: 176 lb * Ordering Physician: Bridgette Marin * Referring Physician: Self, Referred * Performed By: Stephanie Patel RCS * * Reason For Study: AORTIC STENOSIS * BSA: 1.9 m2 * The study was technically adequate. * -- Conclusions -- * The left ventricular wall motion is normal. * There is severe concentric left ventricular hypertrophy. * The LV Ejection Fraction = 55-60%. * The aortic valve is severely calcified with resultant decreased excursion. * Severe valvular aortic stenosis. * Moderate aortic regurgitation. * There is moderate mitral regurgitation. * There is mild tricuspid regurgitation. * Mild pulmonary hypertension is present. * The pulmonary artery systolic pressure is calculated to be 41 mm Hg. * Compared to the prior study dated 02/01/2010, the valvular abnormalities have progressed. Procedure Details * A complete two-dimensional transthoracic echocardiogram was performed (2D, M-mode, Doppler and color flow Doppler). Left Ventricle * The left ventricle is normal in size. * There is severe concentric left ventricular hypertrophy. * Left ventricular systolic function is normal. * Ejection Fraction = 55-60%. * The left ventricular wall motion is normal. Right Ventricle * The right ventricle is normal in size and function. Atria * The left atrium is moderately dilated. * The right atrium is mildly dilated. * There is no evidence of atrial septal defect, but resolution does not allow assessment for a patent foramen ovale. Mitral Valve * There is severe mitral annular calcification. * There is no mitral valve stenosis. * There is moderate mitral regurgitation. Tricuspid Valve * The tricuspid valve is normal. * There is no tricuspid stenosis. * There is mild tricuspid regurgitation. * Mild pulmonary hypertension is present. The pulmonary artery systolic pressure is calculated to be 41 mm Hg. Aortic Valve * The aortic valve is severely calcified with resultant decreased excursion. * Severe valvular aortic stenosis. * Moderate aortic regurgitation. Pulmonic Valve * The pulmonary valve is not well seen, but the Doppler examination is normal without significant regurgitation or stenosis. Great Vessels * The aortic root and proximal ascending aorta are normal sized. Pericardium/Pleural * There is no pericardial effusion. Great Vessels * Normal inferior vena cava diameter and respiratory variation suggests normal central venous pressure. * Normal inferior vena cava size and collapsability with sniff indicates a normal right atrial pressure of 3 mmHg Left Ventricular Diastolic Function * The LV diastolic function is abnormal based on the left atrial enlargement. MMode 2D Measurements and Calculations IVSd 1.9 cm IVSs 1.9 cm LVIDd 3.3 cm LVIDs 2.3 cm LVPWd 1.6 cm LVPWs 2.4 cm IVS/LVPW 1.2 FS 29.7 % EDV(Teich) 42.9 ml ESV(Teich) 18.0 ml EF(Teich) 58.1 % EDV(cubed) 34.7 ml ESV(cubed) 12.0 ml EF(cubed) 65.3 % % IVS thick 2.2 % % LVPW thick 49.9 % LV mass(C)d 226.9 grams LV mass(C)dI 121.1 grams/m\S\2 LV mass(C)s 230.5 grams LV mass(C)sI 123.0 grams/m\S\2 CO(Teich) 1.9 l/min CI(Teich) 1.0 l/min/m\S\2 SV(Teich) 24.9 ml SI(Teich) 13.3 ml/m\S\2 CO(cubed) 1.8 l/min CI(cubed) 0.94 l/min/m\S\2 SV(cubed) 22.6 ml SI(cubed) 12.1 ml/m\S\2 ACS 0.60 cm asc Aorta Diam 3.3 cm LVOT diam 2.1 cm LVOT area 3.5 cm\S\2 LVOT area(traced) 3.5 cm\S\2 LVAd ap4 25.9 cm\S\2 LVLd ap4 7.1 cm EDV(MOD-sp4) 78.0 ml LVAs ap4 14.4 cm\S\2 LVLs ap4 5.7 cm ESV(MOD-sp4) 31.0 ml EF(MOD-sp4) 60.3 % LVAd ap2 23.8 cm\S\2 LVLd ap2 7.1 cm EDV(MOD-sp2) 67.0 ml LVAs ap2 13.6 cm\S\2 LVLs ap2 6.0 cm ESV(MOD-sp2) 27.0 ml EF(MOD-sp2) 59.7 % CO(MOD-sp4) 3.7 l/min CI(MOD-sp4) 2.0 l/min/m\S\2 SV(MOD-sp4) 47.0 ml SI(MOD-sp4) 25.1 ml/m\S\2 CO(MOD-sp2) 3.1 l/min CI(MOD-sp2) 1.7 l/min/m\S\2 SV(MOD-sp2) 40.0 ml SI(MOD-sp2) 21.4 ml/m\S\2 Doppler Measurements and Calculations MV E max angel 103.7 cm/sec MV A max angel 32.6 cm/sec MV E/A 3.2 MV P1/2t max angel 165.1 cm/sec MV P1/2t 158.9 msec MVA(P1/2t) 1.4 cm\S\2 MV dec slope 304.3 cm/sec\S\2 MV dec time 0.20 sec Ao V2 max 433.0 cm/sec Ao max PG 76.0 mmHg Ao max PG (full) 73.9 mmHg Ao V2 mean 315.5 cm/sec Ao mean PG 46.2 mmHg Ao mean PG (full) 45.1 mmHg Ao V2 VTI 105.8 cm ALISA(I,A) 0.58 cm\S\2 ALISA(I,D) 0.58 cm\S\2 ALISA(V,A) 0.58 cm\S\2 ALISA(V,D) 0.58 cm\S\2 AI max angel 383.0 cm/sec AI max PG 58.8 mmHg AI dec slope 304.6 cm/sec\S\2 AI P1/2t 368.2 msec LV V1 max PG 2.1 mmHg LV V1 mean PG 1.1 mmHg LV V1 max 71.8 cm/sec LV V1 mean 47.4 cm/sec LV V1 VTI 17.5 cm MR max angel 558.2 cm/sec MR max PG 124.6 mmHg SV(LVOT) 61.2 ml SI(LVOT) 32.7 ml/m\S\2 PA V2 max 68.9 cm/sec PA max PG 1.9 mmHg TR max angel 298.5 cm/sec
[2016-07-13] MEDS ORDERED: WARFARIN SOD 1.25 MG TAB PO SCH (16:00)
[2016-07-13] MEDS ORDERED: VANCOMYCIN TROUGH ONE (19:30)
[2016-08-15] MEDS ORDERED: CEPH500C2 PO (07:51)
[2016-08-25] MEDS ORDERED: CEPH500C PO (11:14)
[2016-11-04] MEDS ORDERED: CEPH500C PO (11:58)
[2016-11-16] MEDS ORDERED: CEPH500C2 PO (14:49)
[2017-02-10] MEDS ORDERED: CEPH500C PO (13:46)
== END 2016-07-13 13:25 | disposition home health service (06) | DRG 593 ==
LOC: ENRESERVDT → ENRESERVTM → CANRESERV → EDBD 13:40 → EDSEX 13:40 → C.EDA 13:42 → C.MS2W 17:50
PROVIDERS: ADMIT Internal Medicine; ATTEND Hospitalist
DX: L89.892 Pressure ulcer of other site, stage 2 (principal); L03.116 Cellulitis of left lower limb; A49.01 Methicillin susceptible Staphylococcus aureus infection, unspecified site; I48.2 Chronic atrial fibrillation; I25.10 Atherosclerotic heart disease of native coronary artery without angina pectoris; E78.5 Hyperlipidemia, unspecified; I10 Essential (primary) hypertension; D69.6 Thrombocytopenia, unspecified; E03.9 Hypothyroidism, unspecified; Z86.73 Personal history of transient ischemic attack (TIA), and cerebral infarction without residual deficits; Z79.82 Long term (current) use of aspirin; Z79.01 Long term (current) use of anticoagulants; Z91.81 History of falling

== ENCOUNTER 2017-02-21 23:27 | Emergency (ER) | payer BC ==
[~2017-02-21] VITALS: Ht 165.1 cm; Wt 82.5 kg
[~2017-02-21 23:27] MED LIST changes: -ASPCH81X PO; +CEPH500C PO; +COLE1TAB PO; +LATA0.5S OPB; -LEVO-217 PO; +LEVO88TA PO; +OMEP20CA9 PO; -POTA-327 PO; +POTA20TA16 PO; -TRAV0.00 OPB; -[UNRECOGNIZED DRUG - CODE] PO
[2017-02-21 23:35] VITALS: TEMP 36.5; Ht 165.1 cm; Wt 82.5 kg
[2017-02-21] MEDS ORDERED: OXYMETAZOLINE HCL 0.05% NA SPR 15 ML BTL ONE (23:38)
[2017-02-21] MEDS ORDERED: ALL300 PO (23:53)
[2017-02-21] MEDS ORDERED: TIMO0.2528 OPB (23:53)
[2017-02-22 01:44] VITALS: BP 176/88; PULSE 88; O2SAT 99
--- NOTE | 2017-02-22 01:52 | EMERGENCY ROOM VISIT NOTE ---
History First contact with patient: 23:39 Chief Complaint: NOSE BLEED (MINOR) Stated Complaint: EPISTAXIS History of Present Illness The patient is a 89 year old male who presents to the Emergency Room with complaints of nosebleed for the past few hours after accidentally picking his nose. Patient is on Coumadin and aspirin. INR was 2.5 2 weeks ago. No recent nosebleeds. Patient denies chest pain, dyspnea, fevers, cold symptoms, lightheadedness, dizziness, weakness, dyspnea. Review of Systems See HPI for pertinent positives & negatives. A total of 10 systems reviewed and were otherwise negative. 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,& CEREBRAL INFARCTION W/OUT RES DEFICITS Family History Omitted secondary to age Social History Smoking Status: Never Smoker Smokeless Tobacco Use: No Alcohol Use: none Drug Use: none Marital Status: Housing Status: lives with family Occupation Status: retired Current/Historical Medications Scheduled Allopurinol (Allopurinol), 300 MG PO DAILY Atenolol (Tenormin), 50 MG PO DAILY Cephalexin Monohydrate (Keflex), 500 MG PO TID Colestipol Hcl (Colestid), 1 GM PO BID Furosemide (Lasix), 20 MG PO DAILY Latanoprost (Xalatan 0.005% Oph Andra), 1 DROPS OPB HS Levothyroxine Sodium (Synthroid), 1 TAB PO DAILY Potassium Ext Rel (Klor-Con), 10 MEQ PO BID Simvastatin (Zocor), 20 MG PO QPM Timolol Maleate (Ophth) (Timoptic), 1 DROP OPB HS Warfarin Sod (Jantoven), 2.5 MG PO 4XWK Warfarin Sod (Coumadin), 1.25 MG PO 3XWK Physical Exam Vital Signs Date Time Temp Pulse Resp B/P (MAP) Pulse Ox O2 Delivery O2 Flow Rate FiO2 02/21/17 23:35 36.5 101 18 175/82 99 Room Air Physical Exam VITALS: Vitals are noted on the nurse's note and reviewed by myself. Vital signs hypertensive GENERAL: Pleasant male anxious-appearing, in no acute distress, nondiaphoretic, well-developed well-nourished. SKIN: The skin was without rashes, erythema, edema, or bruising. There is no tenting of the skin. Capillary reflex less than 2 seconds. HEAD: Normocephalic atraumatic. EARS: External auditory canals clear, tympanic membranes pearly petit without erythema or effusion bilaterally. EYES: Pupils equal round and reactive to light and accommodation. Conjunctivae without injection, sclerae without icterus. Extraocular movements intact. NOSE: Patent, right Kiesselbach's plexus area with bleeding, no septal hematoma appreciated. No bleeding in the left nare MOUTH: Mucous membranes moist. No active bleeding and the back of the throat. Pharynx without erythema or exudate. Uvula midline. Airway patent. Tongue does not deviate. NECK: Supple without nuchal rigidity. No JVD. HEART: Regular rate and rhythm LUNGS: Clear to auscultation bilaterally without wheezes, rales or rhonchi. No dullness to percussion. No retractions or accessory muscle use. ABDOMEN: Positive bowel sounds x 4. Normal tympanic percussion. Soft, nontender, without masses or organomegaly. Mckeon sign negative. No guarding or rebound tenderness. MUSCULOSKELETAL: No muscle atrophy, erythema, or edema noted. NEURO: Patient was alert and oriented to person place and time. Normal sensation to light and sharp touch. No focal neurological deficits. Medical Decision & Procedures Medications Administered Medications (Trade) Dose Ordered Sig/Ismael Route Start Time Stop Time Status Last Admin Dose Admin Oxymetazoline HCl (Afrin 0.05% Nasal Crane) 75 sprays STK-MED ONCE .ROUTE 02/21/17 23:38 02/21/17 23:39 DC 02/21/17 23:38 75 SPRAYS ED Course Prior records/ancillary studies reviewed. Triage Nursing notes reviewed. The patient's history was concerning for epistaxis. Differential diagnosis: Etiologies such as anterior epistaxis, coagulopathy, traumatic injury, fracture , septal hematoma, posterior epistaxis as well as other pathologies were entertained. Physical examination findings: As above. Anterior bleeding source. ER treatment provided: Direct pressure Intranasal phenylephrine Hemaderm On reassessment the patient felt better. Diagnostics interpreted by me: Deferred This appears to be consistent with epistaxis. Patient was observed for over 2 hours and no rebleeding. He was able to ambulate without difficulties. He was counseled on nosebleeds and all questions are answered. He is advised not to forcibly blow his nose or pick his nose. He is advised follow-up family care in a few days or here in the ER sooner for bleeding, weakness, chest pain, worsening signs or symptoms or as needed. He is advised to monitor his blood pressure as it was elevated. By the evaluation outlined above emergent etiologies such as coagulopathy, traumatic injury, fracture, septal hematoma, posterior epistaxis, as well as others were deemed relatively unlikely. The pt informed about the findings as listed above. All questions were answered and pleased with the treatment. Return instructions were outlined and the patient was discharged in stable condition. Case reviewed with my attending Referral: The patient was referred to family for a recheck of the current condition Medical Decision As above Medication Reconcilliation Current Medication List: was personally reviewed by me Blood Pressure Screening Patient's blood pressure: Elevated blood pressure Blood pressure disposition: Referred to PCP Impression Primary Impression: Epistaxis Departure Information Dispostion Home / Self-Care Condition GOOD Forms WORK / SCHOOL INSTRUCTIONS, HOME CARE DOCUMENTATION FORM, IMPORTANT VISIT INFORMATION Patient Instructions Nosebleeds - [facility], [facility] Additional Instructions Monitor your blood pressure. It was high today. Avoid scratching, rubbing, picking, or blowing your nose. The bone drier operator your nasal passages the more likely they are to bleed. The following two products are available [id number] at most drug stores/pharmacies. [place] Crane nasal spray or similar generic saline spray to keep the nose moist 3 to 4 times a day. If bleeding recurs apply direct pressure for an uninterrupted 20 minutes. On and off pressure is much less effective because it will disturb the clots that are forming. If the bleeding is still a problem after 20 minutes or is so heavy despite the pressure return to the emergency department. Continue current medications. Follow-up with your primary care physician in 2 to 3 days for a recheck of your current condition. Return to ER sooner for nosebleed, chest pain, difficulty breathing, worsening signs or symptoms or as needed.
--- NOTE | 2017-02-22 05:03 | EMERGENCY ROOM VISIT NOTE ---
ED Visit Note First contact with patient: 23:39 I have personally evaluated and examined this patient. I agree with assessment and plan of Jillian Santo PA-C. 89 yr male with right epistaxis on Coumadin eventually stopped with hemaderm.
== END 2017-02-22 01:50 | disposition home or self-care (01) ==
LOC: EDBD 23:27 → C.EDB 23:28
DX: R04.0 Epistaxis (principal); I48.91 Unspecified atrial fibrillation; I25.10 Atherosclerotic heart disease of native coronary artery without angina pectoris; I10 Essential (primary) hypertension; E78.5 Hyperlipidemia, unspecified; E03.9 Hypothyroidism, unspecified; Z86.73 Personal history of transient ischemic attack (TIA), and cerebral infarction without residual deficits; Z91.81 History of falling; Z79.01 Long term (current) use of anticoagulants; Z79.82 Long term (current) use of aspirin; Z79.899 Other long term (current) drug therapy